=== PATIENT | female | born 1965 | race American Indian/Alaskan Native ===

== ENCOUNTER 2017-10-16 09:43 | Outpatient (CLI) | payer OTHER ==
--- NOTE | 2017-10-16 14:20 | Ultrasound Report ---
ULTRASOUND PELVIC COMPLETE ULTRASOUND TRANSVAGINAL HISTORY: Pelvic pain, dyspareunia. COMPARISON: None. TECHNIQUE: Transabdominal and transvaginal ultrasound with color doppler interrogation. FINDINGS: Uterus: The uterus is anteverted. The uterus measures 9.1 x 2.9 x 4.5 cm. No uterine fibroid disease is identified. There are multiple small nabothian cysts in the cervix measuring up to 7 mm. Endometrium: 3.4 mm in thickness. No mass or fluid collection. Right ovary: Normal. Left ovary: Not identified. No pelvic fluid or mass is identified. Normal color doppler interrogation. IMPRESSION: Essentially unremarkable exam. Multiple small nabothian cysts in the cervix.
== END 2017-10-16 09:44 | disposition home or self-care (01) ==
LOC: US 09:43
PROVIDERS: ATTEND Family Medicine
DX: N88.8 Other specified noninflammatory disorders of cervix uteri (principal); N94.10 Unspecified dyspareunia
CPT/HCPCS: 76830; 76856